=== PATIENT | female | born 2000 | race Caucasian/White ===

== ENCOUNTER 2023-05-27 11:27 | Outpatient (CLI) | payer SELFPAY ==
--- NOTE | 2023-05-27 16:28 | XRAY Report ---
PROCEDURE: Chest 2 View X-Ray INDICATIONS: PECTUS EXCAVATUM TECHNIQUE: 2 views of the chest were acquired. COMPARISON: None. FINDINGS: Surgical changes and devices: The patient is status post Rissa procedure with 2 bars transversely acr oss the anterior chest. Hardware appears intact. Lungs and pleura: No pleural effusions or pneumothorax. Lungs are clear. Mediastinum: Mediastinal contours appear normal. Heart size is normal. Bones and chest wall: No suspicious bony lesions. Overlying soft tissues appear unremarkable. IMPRESSION: 1. Intact hardware status post pectus excavatum repair. 2. No acute cardiopulmonary disease. Reviewed by: James Gtz on 05/27/2023 4:27 PM PDT Approved by: James Gtz on 05/27/2023 4:27 PM PDT Station ID: [id number]
== END 2023-05-27 11:28 | disposition home or self-care (01) ==
LOC: DI 11:27
PROVIDERS: ATTEND Specialist
DX: Q67.6 Pectus excavatum (principal)